=== PATIENT | female | born 1935 | race Caucasian/White ===

== ENCOUNTER → 2017-05-12 | Outpatient (CLI) | payer MEDICARE, OTHER ==
[~2017-05-12] MED LIST: CLOR7.5 PO; CONEST1.25 PO; FLUZONE HI180 MCG/05 IM; IRBESARTAN-HCT1 EACH PO; NADO40; PREVNAR 13 SYR0.5 ML IM; TRAZ50 PO
== END ==
LOC: LAB SHORT 18:18
DX: L97.819 Non-pressure chronic ulcer of other part of right lower leg with unspecified severity (principal)
CPT/HCPCS: 87070; 87077; 87147; 87186; 87205

== ENCOUNTER 2018-08-28 11:05 | Inpatient (IN) | payer MEDICARE, OTHER ==
[~2018-08-28] VITALS: Ht 172.7 cm; Wt 77.1 kg
[2018-08-28 11:34] LABS: Alanine Aminotransfer (ALT/SGP 11 U/L (12-78); Albumin, Blood 2.9 g/dL (3.4-5.0); Albumin/Globulin Ratio 0.6 (0.8-1.8); Alk Phos 131 U/L (50-136); Anion Gap 17 mmol/L (6-16); Aspartate Aminotrans (AST/SGOT 18 U/L (12-37); Blood Urea Nitrogen 20 mg/dL (8-24); Bun/Creatinine Ratio 18.9 (12.0-20.0); CO2, Blood 22 mmol/L (21-32); Calcium, Blood 8.7 mg/dL (8.5-10.1); Chloride, Blood 100 mmol/L (98-108); Creatinine, Blood 1.06 mg/dL (0.40-1.00); Globulin, Blood 4.5 g/dL (2.2-4.0); Glomerular Filtration Rate 53 (60-); Glucose, Blood 243 mg/dL (70-99); Magnesium, Blood 1.9 mg/dL (1.6-2.4); Potassium, Blood 3.7 mmol/L (3.5-5.5); Sodium, Blood 139 mmol/L (136-145); Total Protein, Blood 7.4 g/dL (6.4-8.2); Troponin I <0.015 ng/mL (0.000-0.040)
[2018-08-28 11:49] LABS: BASOPHILS ABSOLUTE AUTO 0.07 K/mm3 (0.00-0.23); BASOPHILS PERCENT AUTO 0 % (0-2); EOSINOPHILS ABSOLUTE AUTO 0.08 K/mm3 (0.00-0.68); EOSINOPHILS PERCENT AUTO 0 % (0-6); Hematocrit 44.3 % (33.0-51.0); Hemoglobin 13.5 g/dL (11.5-16.0); IMMATURE GRAN ABSOLUTE AUTO 1.31 K/mm3 (0.00-0.10); IMMATURE GRAN PERCENT AUTO 5 % (0-1); International Normalized Ratio 1.04; LYMPHOCYTES ABSOLUTE AUTO 1.98 K/mm3 (0.84-5.20); LYMPHOCYTES PERCENT AUTO 7 % (21-46); MONOCYTES ABSOLUTE AUTO 1.14 K/mm3 (0.16-1.47); MONOCYTES PERCENT AUTO 4 % (4-13); Mean Corpuscular HGB 31.2 pg (26.0-34.0); Mean Corpuscular HGB Conc 30.5 g/dL (31.5-36.5); Mean Corpuscular Volume 102 fL (80-100); Mean Platelet Volume 11.2 fL (9.1-12.4); NEUTROPHILS ABSOLUTE AUTO 23.07 K/mm3 (1.96-9.15); NEUTROPHILS PERCENT AUTO 83 % (41-73); Platelet Count 246 K/mm3 (150-400); RDW Coefficient Variation 12.8 % (11.7-14.2); RDW Standard Deviation 48.1 fL (35.1-46.3); Red Blood Cell Count 4.33 M/mm3 (3.80-5.20); White Blood Cell Count 27.65 K/mm3 (4.00-11.30)
[2018-08-28 12:00] LABS: Appearance, Urine Cloudy (Clear); Bilirubin, Urine Neg (Neg); Blood, Urine 3+ (Neg); Color, Urine Yellow (P-Yellow); Glucose Qualitative, Urine Neg (Neg); Ketones, Urine 1+ (Neg); Leukocyte Esterase, Urine 1+ (Neg); Nitrite, Urine Neg (Neg); Protein, Urine 4+ (Neg); Source, Urine Catheter; Specific Gravity, Urine 1.025 (1.003-1.022); Urobilinogen, Urine 1+ (Normal)
[2018-08-28 12:30] LABS: White Blood Cells, Urine 0-2 /hpf (0-5)
[2018-08-28 12:31] LABS: Squamous Epithelial Cells Many /hpf (Few)
[2018-08-28 12:33] LABS: Bacteria Mod /hpf; Hyaline Casts Rare /lpf (0-2)
[2018-08-28 12:34] LABS: Amorphous Heavy (0-Heavy)
[2018-08-28] MEDS ORDERED: NADO40 (13:34)
[2018-08-28] MEDS ORDERED: TRAZ50 PO (13:34)
[2018-08-28] MEDS ORDERED: IRBESARTAN-HCT1 EACH PO (13:34)
[2018-08-28] MEDS ORDERED: CLOR7.5 PO (13:34)
[2018-08-28] MEDS ORDERED: FLUZONE HI180 MCG/05 IM (13:35)
[2018-08-28] MEDS ORDERED: CONEST1.25 PO (13:36)
[2018-08-28] MEDS ORDERED: PREVNAR 13 SYR0.5 ML IM (13:36)
[2018-08-28 14:10] LABS: PO2 Arterial 57.5 mmHg (80-100); pH Blood Arterial 7.37 (7.35-7.45)
--- NOTE | 2018-08-28 14:20 | NUR ---
Echocardiogram completed.
--- NOTE | 2018-08-28 14:55 | NUR ---
ADMIT PT ARRIVES TO ICU 7 AT 1430. PT INTUBATED, UNRESPONSIVE. NO COUGH, NO GAG, NO CORNEAL OR PUPIL REFLEXES PRESENT. PT NOTED TO OCCASIONALLY BLINK EYES, APPEARS TO POSTURE UPPER EXTREMITIES OCCASIONALLY, OTHERWISE NO SPONTANEOUS MOVEMENTS. PT IS NOT SEDATED. VENT SETTINGS AC 18, TV 400, PEEP 8, FIO2 100%. SPO2 94, ACTUAL RR 22. LUNG SOUNDS WHEEZY AND DIMINISHED T/O. BRIGHT RED SUCTIONED FROM ET TUBE AND ORAL CAVITY. MONITOR SHOWS A FIB WITH HR 70-100. SBP 110. LOWER EXT'S COOL TO TOUCH, MOTTLED, PEDAL PULSES BY DOPPLER ONLY. BLE EDEMA 2+. PT HAS OG IN PLACE, SET TO LOW INT WALL SUCTION WITH NO RETURN. PT HAS TEMP MCMAHON IN PLACE, TEMP 98.6, SCANT AMT OF DARK YELLOW URINE IN BAG. PICC RN MELINDA TO BEDSIDE TO PLACE PICC LINE PER DR. ARAGON. DR. ARAGON TO BEDSIDE TO EVALUATE PT.
[2018-08-28 16:12] LABS: Base Excess Venous -0.4 mmol/L; Bicarbonate Venous 23.6 mmol/L (24.0-30.0); PCO2 Venous 43.4 mmHg (38-42); PO2 Venous 44.2 mmHg (38-42); pH Blood Venous 7.37 (7.34-7.37)
--- NOTE | 2018-08-28 16:30 | NUR ---
CHEST TUBE CHEST TUBE PLACED TO LEFT LATERAL CHEST WALL FOR PNEUMOTHORAX BY DR ARAGON. AIR LEAK INITIALLY THEN STOPPED. PLACED TO -20CM H20 SUCTION VIA PLEURAVAC. NO CREPITUS NOTED. INSERTION SITE COVERED WITH TEGADERM CHG DRESSING. CHEST XRAY AFTER PLACEMENT INDICATES RESOLVING PNEUMO.
[2018-08-28 16:37] LABS: Magnesium, Blood 1.3 mg/dL (1.6-2.4); Troponin I 0.149 ng/mL (0.000-0.040)
[2018-08-28 16:38] LABS: Phosphorus, Blood 2.1 mg/dL (2.5-4.9)
[2018-08-28 17:12] LABS: Hematocrit 38.4 % (33.0-51.0); Hemoglobin 12.3 g/dL (11.5-16.0); Mean Corpuscular HGB 30.7 pg (26.0-34.0); Platelet Count 175 K/mm3 (150-400); RDW Coefficient Variation 12.8 % (11.7-14.2); RDW Standard Deviation 45.1 fL (35.1-46.3); Red Blood Cell Count 4.01 M/mm3 (3.80-5.20); White Blood Cell Count 20.81 K/mm3 (4.00-11.30)
[2018-08-28 17:32] LABS: Mean Corpuscular Volume 96 fL (80-100)
[2018-08-28 17:55] LABS: PCO2 Arterial 39.6 mmHg (35-45); PO2 Arterial 125 mmHg (80-100); pH Blood Arterial 7.38 (7.35-7.45)
[2018-08-28 18:19] LABS: BAND PERCENT MAN 13 % (0-8); BASOPHILS PERCENT MAN 0 % (0-2); EOSINOPHILS PERCENT MAN 0 % (0-6); LYMPHOCYTES ABSOLUTE MAN 0.83 K/mm3 (0.84-5.20); LYMPHOCYTES PERCENT MAN 4 % (21-46); MONOCYTES ABSOLUTE MAN 1.66 K/mm3 (0.16-1.47); MONOCYTES PERCENT MAN 8 % (4-13); NEUTROPHILS ABSOLUTE MAN 18.31 K/mm3 (1.96-9.15); SEG NEUTROPHILS PERCENT MAN 75 % (41-73); TOTAL CELLS COUNTED 100
[2018-08-28 18:37] LABS: International Normalized Ratio 1.15
[2018-08-28 18:41] LABS: Adenovirus Not Detected (NOT DETECT); Bordetella pertussis Not Detected (NOT DETECT); Chlamydophila pneumoniae Not Detected (NOT DETECT); Coronavirus 229E Not Detected (NOT DETECT); Coronavirus HKU1 Not Detected (NOT DETECT); Coronavirus NL63 Not Detected (NOT DETECT); Coronavirus OC43 Not Detected (NOT DETECT); Human Metapneumovirus Not Detected (NOT DETECT); Human Rhinovirus/Enterovirus Not Detected (NOT DETECT); Influenza A Not Detected (NOT DETECT); Influenza A/2009-H1 Not Detected (NOT DETECT); Influenza A/H1 Not Detected (NOT DETECT); Influenza A/H3 Not Detected (NOT DETECT); Influenza B Not Detected (NOT DETECT); Mycoplasma pneumoniae Not Detected (NOT DETECT); Parainfluenza Virus 1 Not Detected (NOT DETECT); Parainfluenza Virus 2 Not Detected (NOT DETECT); Parainfluenza Virus 3 Not Detected (NOT DETECT); Parainfluenza Virus 4 Not Detected (NOT DETECT); Respiratory Syncytial Virus Not Detected (NOT DETECT)
--- NOTE | 2018-08-28 19:28 | NUR ---
family at bedside. review of pt with staff
--- NOTE | 2018-08-28 19:28 | NUR ---
SHIFT SUMMARY PT CONTINUES TO BE UNRESPONSIVE. INCREAESE IN POSTURING MOVEMENTS TO UPPER EXTREMITIES NOTED OVER LAST HOUR OR SO. VITALS STABLE WITH VENT SETTINGS AC 18, TV 400, PEEP 10, FIO2 80% AT THIS TIME. PICC LINE WAS PLACED TO BEKAH - INFUSING NS TKO, ABX, AND MAG REPLACEMENT. LEFT LATERAL CHEST TUBE REMAINS IN PLACE TO -20CM H20 SUCTION. MCMAHON OUTPUT 20ML SINCE MCMAHON PLACEMENT IN ER. OG TO LOW INT WALL SUCTION WITH SMALL AMT BROWN LIQUID OUT. BRIGHT RED CONTINUES TO BE SUCTIONED FROM ET AND ORAL CAVITY. SPUTUM SAMPLE SENT. PT TO GO FOR HEAD AND CHEST CT AT 1999. HANDOFF REPORT GIVEN TO JALEEL NGUYEN TO ASSUME CARE OF PT.
[2018-08-28 19:41] LABS: Albumin, Blood 2.3 g/dL (3.4-5.0); Albumin/Globulin Ratio 0.7 (0.8-1.8); Bilirubin, Total 1.7 mg/dL (0.1-1.0); Bun/Creatinine Ratio 20.5 (12.0-20.0); Calcium, Blood 8.3 mg/dL (8.5-10.1); Creatinine, Blood 1.12 mg/dL (0.40-1.00); Globulin, Blood 3.4 g/dL (2.2-4.0); Potassium, Blood 3.1 mmol/L (3.5-5.5); Total Protein, Blood 5.7 g/dL (6.4-8.2)
--- NOTE | 2018-08-28 19:44 | NUR ---
ASSUMED CARE OF PT AT 1900. REPORT RECEIVED AT BEDSIDE. PT PRESENTS IN BED. VENTED. AC 18, 400 TV, FIO2 70 %, PEEP 10. PT NOTED TO HAVE POSTURING OF LEFT SIDE DECORTICUS, OCCASSIONAL RIGHT SIDE DECORTICUS POSTURING. EYES TURNED UP AND NON REPSONSIVE. POSITIVE BABINSKI SIGN BI LATERALLY. CHEST TUBE TO LEFT LATERAL CHEST. NO SUBCUTANEOUS EMPHYSEMA DETECTED. WILL BE TAKING PT TO CT FOR HEAD AND CHEST CT. RESPIRATORY THERAPY AWARE. WILL REVIEW CHART AND PLAN OF CARE FOR THIS PT.
--- NOTE | 2018-08-28 22:30 | NUR ---
CALL MADE TO DR ARAGON CONCERNING LABS AND RESULTS OF CT SCANS OF HEAD AND CHEST. RECEIVED ORDERS. PT HAS BEEN HAVING FEWER EPISODES OF DECORTICUS POSTURING. REMAINS WITH POSITIVE BABINSKI'S SIGN. DOES OPEN EYELIDS WITH TACTILE STIMULI. NO PURPOSEFUL MOVEMENTS NOTED. FULL BEDBATH DONE FOR PT. NOTED, PT'S EXTREMITIES WOULD STIFFEN DURING TURNS. WILL CONTINUE TO MONITOR PT. HAVE NOTICED PT'S RESPIRATORY RATE, HEART RATE, AND BLOOD PRESSURES HAVE INCREASED. SEE VITAL SIGN FLOWSHEET IN EHR FOR DETAILS.
--- NOTE | 2018-08-29 02:55 | NUR ---
HAVE MEDICATED PT TWICE WITH 25 MCG FENTANYL FOR PROBABLE RESPONSE TO PAIN WITH INCREASE IN BLOOD PRESSURE, HEART RATE, AND RESPIRATORY RATE. PT'S RESPONSE TO FENTANYL FAIR. DID START PROPOFOL AT LOW DOSE OF 20 MCG/KG/HOUR. THIS HAS IMPROVED PT'S TOLERANCE OF VENT. HAVE NOTED BLOOD PRESSURES, HEART RATE, AND RESPIRATORY RATES HAVE IMPROVED. NO DRAINAGE FROM CHEST TUBE. REMAINS AT 20 CM WALL SUCTION. NO CREPITUS NOTED AT SITE. WILL CONTINUE TO MONITOR PT.
--- NOTE | 2018-08-29 03:24 | NUR ---
DECREASED PROPOFOL BACK TO 15 MCG'S SECONDARY TO PT'S BLOOD PRESSURE DROPPING. REPORT GIVEN TO JALEEL RICHEY TO ASSUME CARE.
--- NOTE | 2018-08-29 03:33 | NUR ---
ASSUMING CARE RECEIVED PT REPORT FROM JALEEL NGUYEN. PT IS INTUBATED AT THIS TIME. PT VENT SETTINGS ARE AC18, TV 400, FIO2 70%, AND PEEP 10. PT SPO2 IS CURRENTLY MAINTAINING IN THE MID 90'S. PT IS ON 15MCG/KG/MIN OF PROPOFOL FOR SEDATION. PT IS MINIMALLY RESPONSIVE AT THIS TIME AND HAS A POSITIVE BABINSKI SIGN. PT APPEARS TO HAVE AN UPWARD GAZE AND IS NOT RESPONDING TO OBJECTS APPROACHING EYES. NO OTHER POSTURING NOTED AT THIS TIME. PT HAS AN OG TUBE IN PLACE, CURRENTLY TO LIS. DARK GREEN DRAINAGE NOTED. PT HAS CHEST TUBE IN PLACE TO THE LEFT LATERAL CHEST WALL. CHEST TUBE IS CURRENTLY SET TO WALL SUCTION WITH 20CM WATER. PT HR IS CURRENTLY IN THE 90'S TO 100'S AND IS IN A-FIB. PT BP IS CURRENTLY IN THE 90-100'S RANGE SYSTLIC. PT LUNG SOUNDS APPEAR TO BE CLEAR AT THIS TIME. ASSUMING CARE OF PT AT TIME OF PT REPORT, APPROX 0330. WILL CONTINUE TO MONITOR PT.
[2018-08-29 05:37] LABS: Bun/Creatinine Ratio 17.3 (12.0-20.0); Calcium, Blood 7.8 mg/dL (8.5-10.1); Creatinine, Blood 1.56 mg/dL (0.40-1.00); Magnesium, Blood 1.8 mg/dL (1.6-2.4); Phosphorus, Blood 4.6 mg/dL (2.5-4.9); Potassium, Blood 3.9 mmol/L (3.5-5.5)
[2018-08-29 05:44] LABS: Hematocrit 34.7 % (33.0-51.0); Hemoglobin 11.5 g/dL (11.5-16.0); Mean Corpuscular HGB 30.9 pg (26.0-34.0); Mean Corpuscular HGB Conc 33.1 g/dL (31.5-36.5); Mean Platelet Volume 10.6 fL (9.1-12.4); Platelet Count 159 K/mm3 (150-400); RDW Coefficient Variation 12.9 % (11.7-14.2); RDW Standard Deviation 44.3 fL (35.1-46.3); Red Blood Cell Count 3.72 M/mm3 (3.80-5.20); White Blood Cell Count 24.49 K/mm3 (4.00-11.30)
[2018-08-29 05:47] LABS: Mean Corpuscular Volume 93 fL (80-100)
--- NOTE | 2018-08-29 07:11 | NUR ---
SHIFT SUMMARY NOTE PT REMAINS INTUBATED AT THIS TIME. VENT SETTINGS REMAIN AC 18, TV 400, FIO2 70% AND PEEP 10. VENT SETTINGS HAVE REMAINED UNCHANGED AFTER CARE ASSUMED. PT IS NOT IN RESTRAINTS AT THIS TIME, PT HAS NOT BEEN OBSERVED TO MAKE ANY PURPOSEFUL MOVEMENTS. PT CONTINUES TO HAVE POSITIVE BABINSKI SIGN AND WAS OBSERVED TO POSTURE WITH NOXIOUS STIMULI SUCH ORAL CARE. PT HAD APPROX 150ML OF URINE OUTPUT OVER NIGHT. CHEST TUBE REMAINS IN PLACE TO WALL SUCTIONING. NO CREPITUS OR EMPHYSEMA NOTED TO CHEST ON PALPATION. PT CONTINUES TO RECEIVE PROPOFOL AT 15MCG/KG/HR AND NS AT TKO. BITE BLOCK REPLACED BY RT. REFER TO VITAL SIGN FLOW SHEET FOR DETAILS. WILL REPORT OFF TO ONCOMING DAY SHIFT NURSE.
--- NOTE | 2018-08-29 09:33 | NUR ---
ASSUMED CARE ASSUMED CARE OF PT AT 0700. REPORT RECEIVED FROM JALEEL RICHEY. PT INTUBATED AND SEDATED UPON ASSUMING CARE. VENT SETTINGS AC 18, TV 400, PEEP 10, FiO2 70%, ACTUAL RR 22. PROPOFOL AT 15MCG/KG PLACED ON STANDBY FOR NEURO ASSESSMENT. WITH SEDATION OFF, PT MAKES NO PURPOSEFUL MOVEMENTS, ONLY POSTURING MOVEMENTS NOTED WITH STIMULATION SUCH ORAL CARE. PUPILS GAZED UP BILATERALLY, 4MM, RESPONSIVE TO LIGHT. WITH SEDATION OFF, BP INCREASED FROM 100 SYSTOLIC TO 170'S, HR INCREASED FROM 80'S TO 140'S, RR INCREASED FROM 22 TO 28. PROPOFOL RE-STARTED AT 10MCG/KG. PT HAS LEFT LATERAL CHEST TUBE TO -20CM H20 SUCTION. NO CREPITUS NOTED. NO DRAINAGE TO PLEURAVAC. NO AIR LEAK. MCMAHON CATH DRAINING DARK RADHA URINE TO GRAVITY. OG TO LOW INT WALL SUCTION WITH SCANT OUTPUT. SCANT RED SUCTIONED FROM ET TUBE AND ORAL CAVITY. PT'S FAMILY MEMBERS AT BEDSIDE. WILL CONTINUE TO MONITOR CLOSELY.
--- NOTE | 2018-08-29 10:19 | NUR ---
CHEST TUBE CHEST TUBE WITHDRAWN 3CM BY DR. ARAGON DUE TO ONGOING PNEUMO. RE-CONNECTED TO -20CM SUCTION. AWAITING CHEST X-RAY AT THIS TIME.
--- NOTE | 2018-08-29 11:48 | NUR ---
brief review with family of prognosis and plan. theraputic touch and talk with patient. ordered sanck and coffee caret as courtesy To Dr Cobb and family.
--- NOTE | 2018-08-29 14:15 | NUR ---
TUBE FEEDING PIVOT 1.5 TUBE FEED STARTED AT RATE OF 25ML/HR PER ORDERS. 30ML WATER FLUSHES Q4H.
--- NOTE | 2018-08-29 18:35 | NUR ---
SHIFT SUMMARY PT CONTINUES TO BE INTUBATED AND UNRESPONSIVE EXCEPT FOR POSTURING MOVEMENTS NOTED WITH STIMULUS SUCH REPOSITONING AND ORAL CARE. PT'S EYES CONTINUE TO BE OPEN AND ROLLED BACK IN HEAD - PUPILS MIDLINE AND REACTIVE TO LIGHT. EYELIDS TAPED CLOSED. VENT SETTINGS DECREASED TO AC 18, TV 400, PEEP 8, FIO2 50%. PT WAS STARTED ON LEVOPHED THIS SHIFT FOR HYPOTENSION - CURRENTLY INFUSING 3MCG/MIN. LEFT LATERAL CHEST TUBE WAS WITHDRAWN 3CM THIS SHIFT - SITE HAS NO CREPITUS NOTED. NO AIR LEAK IN PLEURAVAC, CONTINUES TO -20CM WATER SUCTION. TUBE FEEDINGS STARTED VIA OG TUBE - PIVOT 1.5 FORMULA AT 25ML/HR, TOLERATING WELL THUS FAR. MCMAHON OUTPUT ~500ML DARK RADHA URINE. FAMILY WAS AT BEDSIDE T/O SHIFT. DAUGHTER JAISON WENT HOME TO [place] "FOR A COUPLE DAYS", STATES SHE WILL CALL FOR UPDATES BUT IS ANTICIPATING WAITING A COUPLE OF DAYS TO SEE IF PT TURNS AROUND BEFORE MAKING ANY DECISIONS ON CARE. WILL CONTINUE TO MONITOR PT AND GIVE HANDOFF REPORT TO ONCOMING RN.
--- NOTE | 2018-08-29 19:38 | NUR ---
DR. ARAGON CALLED AND INFORMED OF + BC WITH gram - bacilli. NO NEW ORDERS AT THIS TIME.
--- NOTE | 2018-08-29 20:20 | NUR ---
START OF SHIFT: BEDSIDE REPORT FROM HEMANT MARMOLEJO. PT INTUBATED-VENT A/C 18, Vt400, FiO2 40%, PEEP 8.0, LS CLEAR; VSS; PUPILS EARLINE 2mm STARING UPWARD BILATERALY EYES OPENING WIDER WHEN PT SPOKEN TO AND BY NAME BUT NOT FOLLOWING COMMANDS; SENSATION TO BILATERAL FEET WITH STIMULATION, NO TO HANDS NOTED. LEFT CHEST WATER SEAL SUCTION WITH NO LEAKS NOTED, DRESSING DCI. OG TUBE TUBE FEED CURRENTLY AT 25cc/hr (40 GOAL) WITH 0 RESIDUAL NOTED AND FLUSHED WITH 30cc STERILE WATER, WILL INCREASE AT 2200. PT APPEARS COMFORTABLE AT THIS TIME WITH PROPOFOL 10mcg/kg/min AND LEVOPHED AT 3mcg/min. WILL CONTINUE TO MONITOR.
[2018-08-30 03:49] LABS: BASOPHILS ABSOLUTE AUTO 0.08 K/mm3 (0.00-0.23); BASOPHILS PERCENT AUTO 0 % (0-2); EOSINOPHILS PERCENT AUTO 0 % (0-6); Hematocrit 33.3 % (33.0-51.0); Hemoglobin 12.1 g/dL (11.5-16.0); IMMATURE GRAN ABSOLUTE AUTO 1.64 K/mm3 (0.00-0.10); IMMATURE GRAN PERCENT AUTO 5 % (0-1); LYMPHOCYTES ABSOLUTE AUTO 0.38 K/mm3 (0.84-5.20); LYMPHOCYTES PERCENT AUTO 1 % (21-46); MONOCYTES ABSOLUTE AUTO 1.56 K/mm3 (0.16-1.47); MONOCYTES PERCENT AUTO 5 % (4-13); Mean Corpuscular HGB 34.7 pg (26.0-34.0); Mean Corpuscular HGB Conc 36.3 g/dL (31.5-36.5); Mean Corpuscular Volume 95 fL (80-100); Mean Platelet Volume 10.7 fL (9.1-12.4); NEUTROPHILS ABSOLUTE AUTO 27.33 K/mm3 (1.96-9.15); NEUTROPHILS PERCENT AUTO 88 % (41-73); Platelet Count 216 K/mm3 (150-400); RDW Coefficient Variation 13.3 % (11.7-14.2); RDW Standard Deviation 45.3 fL (35.1-46.3); Red Blood Cell Count 3.49 M/mm3 (3.80-5.20); White Blood Cell Count 30.99 K/mm3 (4.00-11.30)
[2018-08-30 04:08] LABS: BAND PERCENT MAN 16 % (0-8); BASOPHILS PERCENT MAN 0 % (0-2); EOSINOPHILS PERCENT MAN 0 % (0-6); METAMYELOCYTE PERCENT MAN 1 % (0-0); MONOCYTES ABSOLUTE MAN 2.47 K/mm3 (0.16-1.47); MONOCYTES PERCENT MAN 8 % (4-13); SEG NEUTROPHILS PERCENT MAN 75 % (41-73); TOTAL CELLS COUNTED 100
[2018-08-30 04:11] LABS: Albumin, Blood 2.2 g/dL (3.4-5.0); Albumin/Globulin Ratio 0.5 (0.8-1.8); Bilirubin, Total 1.3 mg/dL (0.1-1.0); Bun/Creatinine Ratio 22.3 (12.0-20.0); Calcium, Blood 7.9 mg/dL (8.5-10.1); Creatinine, Blood 1.75 mg/dL (0.40-1.00); Globulin, Blood 4.1 g/dL (2.2-4.0); Magnesium, Blood 2.3 mg/dL (1.6-2.4); Phosphorus, Blood 2.8 mg/dL (2.5-4.9); Potassium, Blood 3.8 mmol/L (3.5-5.5); Total Protein, Blood 6.3 g/dL (6.4-8.2)
--- NOTE | 2018-08-30 04:48 | NUR ---
PROPOFOL OFF FOR POSSIBLE SEDATION VACATION. HR INCREASED TO 133 FROM 120. BENI RT STATED PT NOT ELIGIBLE FOR WEAN THIS AM.
--- NOTE | 2018-08-30 06:38 | NUR ---
PT WITH NO CHANGE IN NEURO T/O NOC. LEVOPHED TITRATED TO 1mcg/min. PROPOFOL AT 15mcg/kg/min. VSS WITH TITRATIONS. PT FLICKERS EYELIDS BUT NO OTHER PURPOSEFUL MOVEMENTS. THIS AM DURING THE BRIEF SEDATION VACATION PT HR UP TO 150'S AND BECAME HYPERTENSIVE. SEDATION WAS RESTARTED AND PT REPOSITIONED AND CHEST TUBE CHECKED. PT GIVEN FENTANYL 50mcg FOR VENTALATION TOLERANCE AND/OR WHAT MAY HAVE BEEN PAIN. PT MORE RESTFUL EVER SINCE. DR. GUEVARA CAME TO BEDSIDE AND WAS UPDATED. OTHERWISE NO NEW CHANGES IN PT T/O NOC.
--- NOTE | 2018-08-30 07:30 | NUR ---
ASSUMED CARE OF PATIENT; SEE ASSESSMENT CHARTING FOR DETAILS. LUNGS CLEAR; PATIENT ON VENTILATOR WITH SETTINGS: A/C 18/ TV 400, PEEP 8 AND FI02 45%. PROPOFOL DRIP AT 15MCG/KG/MIN; PATIENT NON-RESPONSIVE; EYES OPENED 1/2 WAY; PEERL AT ABOUT 3MM; EYES ROLL BACK HOWEVER. DECORTICOID POSTURING WITH PAINFUL STIMULI. APPEARS TO ALMOST BITE TONGUE; ORAL CARE DONE AND SOME BLOOD NOTED ON R SIDE OF GUMS OR TONGUE; CLEANED OFF AND NO FURTHER BLEEDING NOTED. MONITOR WITH AFIB RVR; ON 1MCG/MIN OF LEVOPHED; RN TURNED OFF. FEBRILE; TEMP 101.3 PER MCMAHON TEMP. PROBE. NO BLANKETS IN PLACE; ROOM TEMP DOWN AND COOL WASH CLOTHS TO FOREHEAD. WILL WORK ON GETTING A TYLEONL ORDER. OGT IN PLACE AND INFUSING WITH PIVOT 1.5 AT 40ML/HR (GOAL RATE); < 10CC RESIDUAL. RENAL LABS WORSENED AND WBC UP TO 30.99.
--- NOTE | 2018-08-30 08:25 | NUR ---
DR. LAWSON HERE (HOSPITALIST); NO CHANGES.
--- NOTE | 2018-08-30 10:00 | NUR ---
DR. FERNANDO ROUNDED; WANTS PROPOFOL DRIP TITRATED OFF SO NEURO STATUS CAN BE CLOSER EVALUATED. ORDERED EEG AND CT OF HEAD, WITHOUT CONTRAST, FOR TOMORROW.
--- NOTE | 2018-08-30 10:45 | NUR ---
PASTORAL CARE WATER INSPECTOR HERE (LESLIE); VERY SUPPORTIVE OF FAMILY MEMBERS.
--- NOTE | 2018-08-30 12:00 | NUR ---
1/2NS IVF STARTED; TO INFUSE AT 75ML/HR. PROPOFOL DRIP ON STANDBY FOR SOMETIME.
--- NOTE | 2018-08-30 12:40 | NUR ---
T/C FROM ASSISTANT ACCOUNT EXECUTIVE.; WANTING TO DO EEG TODAY D/T OPENING AVAILABLE. RN SPOKE TO DR. FERNANDO WHO STATED TODAY WAS OKAY.
--- NOTE | 2018-08-30 13:25 | NUR ---
EEG IN PROCESS.
--- NOTE | 2018-08-30 14:41 | NUR ---
Lengthy visit with Shahriar, pt's son, at bedside. He was tearful throughout conversation. He expressed a deep ezio in God and the awareness that "Mom would never have wanted any of this." Shahriar verbalizes his belief that "She's already gone. This is just her shell." He states that "everyone" in family agrees that "we should let her go." However, none of them "want to be the one making that decision." Shahriar states that his sister should be the one to "say when." Pt's spouse is very ill with end-stage Parkinson's. He is also a retired naval police coxswain who does not deal with emotions well according to Shahriar. Shahriar expressed some deep-seated guilt and remorse. He respomded well to gentle funeral planning counselor towards self-forgiveness. I provided guidence and education about "the decision" to good effect. I listened to many stories about Ava's love and generousity. Shahriar and I prayed together for God's presence and guidence. Advised I would be available to help family. Offered continued spiritual support.
[2018-08-30 16:06] LABS: Vancomycin, Trough 14.6 ug/mL (5.0-10.0)
--- NOTE | 2018-08-30 17:25 | NUR ---
FAMILY IN/OUT; DAUGHTER (POA) ALSO ARRIVED. DISCUSSION WITH LESLIE ARIAS (PALLIATIVE CARE RUBBER COMPOUNDER). DECISION MADE TO MAKE PATIENT A DNR.
--- NOTE | 2018-08-30 17:30 | NUR ---
T/C TO DR LAWSON (HOSPITALIST) TO SEE IF RN CAN PLACE DNR ORDER; UPDATE GIVEN, ALSO. DR. ALWSON AGREEABLE FOR RN TO PLACE DNR ORDER.
--- NOTE | 2018-08-30 18:50 | NUR ---
FAMILY HAS DECIDED THEY WANT TO LET PATIENT GO AND BE PLACED ON COMFORT CARE. RN T/C TO DR. LAWSON AND SHE GAVE OKAY FOR RN TO CHANGE PATIENT TO COMFORT CARE ONCE ALL FAMILY MEMBERS AVAILABLE, ETC. LEGAL CONSULTANT T/C TO [place] [employer] AND STARTED END OF LIFE PAPER WORK. NURSING TO CALL BACK DONOR PROGRAM ONCE PATIENT PASSES AWAY.
--- NOTE | 2018-08-30 18:55 | NUR ---
PALLIATIVE CARE NURSEZACHERY, PLACING COMFORT CARE ORDERS (MEDS) INTO COMPUTER/EMAR PER COMFORT CARE PROTOCOLS. RN GIVING REPORT TO ONCOMING NURSES. AWAITING DAUGHTER TO MAKE PHONE CALLS AND ONCE REPORT COMPLETED WILL START REMOVING LIFE SUPPORT, IV MEDS. ETC.
--- NOTE | 2018-08-30 18:59 | NUR ---
Facilitated family meeting regarding their understanding of Ava's decline. All state clearly and firmly that Ava would not want heroic measures. Provided nearing education, anticipatory bereavement corporate counsel, and prayer. Annointed Ava with Holy oil and did unity service with family. Family in agreement to allow a natural with peace and dignity. Awaiting orders, RT, and medications.
--- NOTE | 2018-08-30 19:45 | NUR ---
ASSUMED CARE PT WAS EXTUBATED AT 1941. SPIRTUAL/PALITATIVE CARE PRESENT. EDUCATED FAMILY ON SIGNS OF NONVERBAL PAIN, AND WHEN TO CALL NURSE WHEN PATIENT IS IN DISTRESS. GOAL IS TO KEEP PATIENT COMFORTABLE, AND TO PAINFREE AND WITH DIGNITY.
--- NOTE | 2018-08-30 19:47 | NUR ---
EXTUBATED PT EXTUBATED, PROPOFOL OFF AT 1911 AND TF OFF AT 1919. PT EXTUBATED WITHOUT INCIDENT, FAMILY PRESENT, ALL QUESTIONS ANSWERED. MONIQUE ARIAS PRESENT AND WITH FAMILY.
--- NOTE | 2018-08-30 20:05 | NUR ---
C/B at family request to be present at time of extubation. Provided presence and prayer. Ava appears comfortable. Family tearful, but appropriate. I will continue to be available to this family.
--- NOTE | 2018-08-31 06:19 | NUR ---
SHIFT SUMMARY FAMILY HAS REMAINED IN ROOM FOR SHIFT. PT IS UNRESPONSIVE, BUT WILL OCCASIONALLY GRUNG WITH RESPIRATORY EFFORT AND HAS SECRETIONS IN BACK OF THROAT. PT HAS BEEN MEDICATED FOR BOTH PAIN AND ANXIETY T/O SHIFT AND FAMILY EDUCATED ON NONVERBAL PAIN INDICATORS. MCMAHON REMAINS PRESENT WELL LEFT CHEST TUBE TO WATER SEAL.
--- NOTE | 2018-08-31 08:00 | NUR ---
FEMALE PAT VERY FLUSHED AND CYANOTIC. TURNED TO RIGHT SIDE. OCC OPENS EYES TO HER NAME. IS A COMFORT CARE PATIENT. SOME SECRETION HEARD IN THE BACK OF HER THROAT. LIGHTLY SUXED FROM MOUTH. MANY FAMILY HERE TO BE WITH HER.
--- NOTE | 2018-08-31 13:26 | NUR ---
Family taking turns at bedside. Lengthy visit with son, Shahriar, at bedside. Provided bereavement education and prayer to good effect. Ava is non- responsive. She appears comfortable and well cared-for by nursing. Shahriar reports family is at peace. They would like [facility] for final arrangements. I will remain available.
--- NOTE | 2018-08-31 14:54 | NUR ---
PARTIENT GIVEN A BED BATH AND LININS CHANGED. HAD A LARGE SOFT STOOL ALSO. MARINO AREA RED AND NUTRASHIELD APPLIED
--- NOTE | 2018-08-31 15:24 | NUR ---
PATS LEFT CHEST TUBE TO WATER SEAL. SOME SEROSANG LIQ IN TUBING. PAT HAS BEEN TURNED Q2 HOURS.
--- NOTE | 2018-08-31 18:32 | NUR ---
FEMALE PAT ON COMFORT MEASURES. RED CYANOTIC FACE AND BLUE LIPS. FAMILY VERY UPSET THAT SHE IS LOOKING SO TERRIBLE. ATROPINE DROPS GIVEN FOR MOIST GARGLE SOUNDS IN BACK OF THROAT. MED FEQ FAMILY ASKED TO MAKE HER COMFORTABLE.
--- NOTE | 2018-08-31 18:53 | NUR ---
Comfort Care: Many members in room. Case conference with Tess nurse. She reports that family is somewhat disturbed by the process and the appearance of the patient. No other concerns, symptoms managed.
--- NOTE | 2018-08-31 21:05 | NUR ---
ASSUMED CARE OF PT AT 1900. REPORT RECEIVED. PT PRESENTED IN BED IN NO APPARENT DISTRESS. HAS CHEST TUBE IN PLACE, AND IS ON COMFORT MEASURES. FAMILY AT BEDSIDE. PROVIDED FOR QUESTIONS AND ANSWERED THOSE ABLE. HAVE SUBSEQUENTLY MEDICATED PT WITH 25 MCG FENTANYL AND 2 MG ATIVAN. THIS DOSING AFFECTIVE TO KEEP PT COMFORTABLE. DISCUSSED COMFORT PLAN OF CARE WITH FAMILY WITH MEDICATION OPTIONS. WILL CONTINUE TO MONITOR AND KEEP PT COMFORTABLE. WILL GIVE SUPPORT TO FAMILY. WILL ALSO REVIEW CHART AND PLAN OF CARE FOR THIS PT.
--- NOTE | 2018-08-31 23:00 | NUR ---
MOST OF FAMILY MEMBERS HAVE GONE HOME FOR THE NIGHT. ONE FAMILY MEMBER TO ROOM IN WITH PT. HAVE MEDICATED PT WITH 2 MG ATIVAN AND 10 MG ROXANOL. PT UNRESPONSIVE. HAVE TURNED PT AT APPROX Q 2 HOURS, AND HAVE DONE GENTLE ORAL CARE. PT DOES CLOSE MOUTH DOWN DURING ORAL CARE. WILL CONTINUE TO MONITOR PT.
--- NOTE | 2018-09-01 02:00 | NUR ---
HAVE GIVEN PT 15 MG ROXANOL FOR PERCEIVED DISCOMFORT AND FOR CARE AND COMFORT MEASURES. HAVE TAUGHT FAMILY CONCERNING THE MEDICATIONS AND KEEPING PT COMFORTABLE. CHEST TUBE TO LEFT SIDE CHEST REMAINS AT WATER SEAL. WILL CONTINUE TO MONITOR PT.
--- NOTE | 2018-09-01 06:01 | NUR ---
PT CONTINUES SAME PREVIOUS ASSESSMENT. HAVE GIVEN 3 DROPS ATROPINE FOR MILD TO MODERATE GURGLING. ROXANOL 15MG AND ATIVAN 2 MG FOR CARE AND COMFORT. PT DOES NOT PRESENT IN ANY DISTRESS AT THIS TIME. WILL CONTINUE TO MONITOR FOR NEED OF ADDITIONAL MEDICATIONS. WILL REPORT OFF TO ONCOMING RN.
--- NOTE | 2018-09-01 08:00 | NUR ---
FEMALE PAT ON COMFORT CARE. MOUTH CARE, FACE WASHED, AND CATH CARE DONE. LUNGS COARSE AND DIM T/O. NO BOWEL SOUNDS NOTED. UNRESPONSIVE. OCC GRIMACES, EYES OPEN MOST OF THE TIME BUT NO TRACKING NOTED. FACE FLUSHED WITH CYANOSIS OF THE LIPS. IN MRSA ISOLATION OF SPUTUM, DROPLET AND CONTACT. TURNED TO HER RIGHT SIDE
--- NOTE | 2018-09-01 09:37 | NUR ---
LEFT LATERAL CHEST TUBE TO WATER SEAL. SMALL AMT OF SERO/SANG LIQ IN TUBING.
--- NOTE | 2018-09-01 15:08 | NUR ---
Ava appears about the same. She appears comfortable and well cared-for by nursing. Numerous family and friends at bedside. They deny needs or concerns. Family appears calm and peaceful. No needs or concerns presented. I will remain available.
--- NOTE | 2018-09-01 18:19 | NUR ---
Called by RN to be with family at [facility]. Ava passed peacefully and surrounded by loving family. Nursing did a great job with pt and family. Facilitated prayer of release and gratitude with family. They are tearful but appropriate. Family expressed gratitude for compassionate care by [facility] Staff. They [facility] selected [facility] for arrangements.
--- NOTE | 2018-09-01 18:19 | NUR ---
GAVE PATIENT A BATH AND TURNED AGAIN. PAT AT 1809. Clovis MANLEY CALLED AND CAME IMMEDIATLEY TO BE WITH FAMILY. EARLIER TODAY RING REMOVED FROM HER LEFT HAND AND EVERYONE IN THE ROOM AGREED IT SHOULD GO TO HER DAUGHTER.
--- NOTE | 2018-09-01 18:56 | NUR ---
CALLED DONOR BANK AND AWAITING A CALL BACK ON PT BEING A POTENTIAL FOR EYES/TISSUE.
== END 2018-09-01 18:10 | DRG 871 ==
LOC: ER 11:05 → ICUE 11:19 → ICUW 11:19 → ICUE 14:12
PROVIDERS: Emergency Medicine; Internal Medicine Pulmonary Disease; ADMIT Internal Medicine
PROC: 0BH17EZ Insertion of Endotracheal Airway into Trachea, Via Natural or Artificial Opening (ICD-10-PCS; principal; 2018-08-28)
PROC: 5A1945Z Respiratory Ventilation, 24-96 Consecutive Hours (ICD-10-PCS; 2018-08-28)
PROC: 02HV33Z Insertion of Infusion Device into Superior Vena Cava, Percutaneous Approach (ICD-10-PCS; 2018-08-28)
PROC: 5A12012 Performance of Cardiac Output, Single, Manual (ICD-10-PCS; 2018-08-28)
PROC: 0W9B30Z Drainage of Left Pleural Cavity with Drainage Device, Percutaneous Approach (ICD-10-PCS; 2018-08-29)
DX: A41.9 Sepsis, unspecified organism (principal); J69.0 Pneumonitis due to inhalation of food and vomit; J96.01 Acute respiratory failure with hypoxia; R65.21 Severe sepsis with septic shock; J93.9 Pneumothorax, unspecified; N17.9 Acute kidney failure, unspecified; G93.1 Anoxic brain damage, not elsewhere classified; I46.9 Cardiac arrest, cause unspecified; I48.2 Chronic atrial fibrillation; Z79.01 Long term (current) use of anticoagulants
CPT/HCPCS: 31720; 32551; 36415; 36569; 36600; 51702; 70450; 71045; 71260; 80048; 80053; 80202; 81001; 82550; 82803; 82947; 83605; 83735; 83880; 84100; 84484; 85025; 85027; 85610; 85730; 87040; 87070; 87077; 87081; 87086; 87185; 87186; 87205; 87486; 87581; 87633; 87798; 93005; 93010; 93308; 93321; 94002; 94003; 94640; 95819; 96361-59; 96365-59; 96375-59; 99291-25; 99292; C1751; C1894; C9113; J1650; J2060; J2543; J2930; J3010; J3370; J3475; J3480; J7030; J7040; J7060; J7120; Q9967